=== PATIENT | female | born 1935 | race Caucasian/White ===

== ENCOUNTER 2017-06-04 06:34 | Emergency (ER) | payer BC ==
[~2017-06-04] VITALS: Ht 167.6 cm; Wt 68.0 kg
== END 2017-06-04 07:09 | disposition home or self-care (01) ==
LOC: ED 06:34
DX: H11.31 Conjunctival hemorrhage, right eye (principal); I10 Essential (primary) hypertension

== ENCOUNTER 2022-06-03 17:56 | Emergency (ER) | payer MEDICARE ==
[~2022-06-03] VITALS: Ht 160 cm; Wt 61.2 kg
[2022-06-03 20:26] LABS: BASO % 0.3 % (0.0-1.0); EOS % 0.5 % (1.0-4.0); HEMATOCRIT 41.1 % (37.0-47.0); LYMPH # 0.4 10*3/uL (1.3-4.4); LYMPH % 5.8 % (27.0-41.0); MEAN CELL VOLUME 90.3 fl (81.0-99.0); MEAN CORPUSCULAR HGB 29.2 pg (27.0-31.0); MEAN CORPUSCULAR HGB CONC 32.4 g/dl (33.0-37.0); MEAN PLATELET VOLUME 9.4 fl (9.6-12.3); MONO # 0.7 10*3/uL (0.1-1.0); MONO % 10.7 % (3.0-9.0); NEUT # 5.3 10*3/uL (2.3-7.9); NEUT % 82.2 % (47.0-73.0); PLATELET COUNT AUTOMATED 200 10*3/uL (130-400); RED BLOOD COUNT 4.55 10*6/uL (4.10-5.10); RED CELL DISTRI WIDTH 13.8 % (0-14.5); WHITE BLOOD COUNT 6.4 10*3/uL (4.8-10.8)
[2022-06-03 20:58] LABS: ALKALINE PHOSPHATASE 98 U/L (46-116); BUN 18 mg/dl (9-23); CHLORIDE 99 mmol/L (98-107); CREATININE 1.01 mg/dL (0.55-1.02); LIPASE 34 U/L (12-53); SGPT/ALT 8 U/L (10-49); SODIUM 136 mmol/L (136-145); TOTAL PROTEIN 6.6 gm/dL (6.0-8.0)
[2022-06-03] MEDS ORDERED: ONDANSETRON4 MG SL (21:46)
== END 2022-06-03 22:26 | disposition home or self-care (01) ==
LOC: ED 17:56
PROVIDERS: Family Medicine
DX: J10.1 Influenza due to other identified influenza virus with other respiratory manifestations (principal); Z20.822 Contact with and (suspected) exposure to COVID-19; N18.31 Chronic kidney disease, stage 3a

== ENCOUNTER 2024-01-22 16:45 | Observation (INO) | payer MEDICARE ==
[2024-01-22] VITALS (11 sets, daily range): BP systolic 154–218; BP diastolic 52–90
[~2024-01-22] VITALS: Ht 160 cm; Wt 63.5 kg
[~2024-01-22 16:45] MED LIST: ONDANSETRON4 MG SL
[2024-01-22] MEDS ORDERED: hydrALAZINE hydrochloride 20 MG/ML VIAL IV ONE (17:10)
[2024-01-22 17:33] LABS: BASO % 0.6 % (0.0-1.0); EOS # 0.2 10*3/uL (0.0-0.4); EOS % 3.4 % (1.0-4.0); HEMATOCRIT 42.7 % (37.0-47.0); LYMPH # 1.6 10*3/uL (1.3-4.4); MEAN CELL VOLUME 89.3 fl (81.0-99.0); MEAN CORPUSCULAR HGB 28.9 pg (27.0-31.0); MEAN CORPUSCULAR HGB CONC 32.3 g/dl (33.0-37.0); MONO # 0.5 10*3/uL (0.1-1.0); MONO % 8.5 % (3.0-9.0); NEUT # 3.9 10*3/uL (2.3-7.9); NEUT % 62.2 % (47.0-73.0); PLATELET COUNT AUTOMATED 232 10*3/uL (130-400); RED BLOOD COUNT 4.78 10*6/uL (4.10-5.10); WHITE BLOOD COUNT 6.3 10*3/uL (4.8-10.8)
[2024-01-22] MEDS ORDERED: LOSARTAN POTAS100 M1 PO (17:42)
[2024-01-22 17:45] LABS: ACT PARTIAL THROMBO TIME 27.9 SECONDS (20.0-32.1)
[2024-01-22 17:51] LABS: BUN 17 mg/dl (9-23); CHLORIDE 105 mmol/L (98-107); POTASSIUM 4.3 mmol/L (3.4-5.1)
[2024-01-22] MEDS ORDERED: TEMAZEPAM 15 MG CAP PO PRN (21:35)
[2024-01-22] MEDS ORDERED: MORPHINE Sulfate 2 MG/ML SYR IV PRN (21:35)
[2024-01-22] MEDS ORDERED: ACETAMINOPHEN 325 MG TAB PO PRN (21:35)
[2024-01-22] MEDS ORDERED: BISACODYL 10 MG SUPP R PRN (21:35)
[2024-01-22] MEDS ORDERED: Magnesium Hydroxide 30 ML UDC PO PRN (21:35)
[2024-01-22] MEDS ORDERED: BISACODYL 5 MG TAB PO PRN (21:35)
[2024-01-22] MEDS ORDERED: Acetaminophen/Hydrocodone 5 MG/325 MG TABLET PO PRN (21:35)
[2024-01-22] MEDS ORDERED: Ondansetron Hydrochloride 4 MG/2 ML VIAL IV PRN (21:35)
[2024-01-22] MEDS ORDERED: ACETAMINOPHEN 650 MG SUPP R PRN (21:35)
[2024-01-23 03:30] VITALS: BP 155/65
[2024-01-23 06:21] LABS: BASO % 0.6 % (0.0-1.0); EOS # 0.3 10*3/uL (0.0-0.4); EOS % 3.8 % (1.0-4.0); HEMATOCRIT 41.1 % (37.0-47.0); LYMPH # 1.9 10*3/uL (1.3-4.4); LYMPH % 27.7 % (27.0-41.0); MEAN CORPUSCULAR HGB CONC 32.6 g/dl (33.0-37.0); MEAN PLATELET VOLUME 9.2 fl (9.6-12.3); MONO # 0.8 10*3/uL (0.1-1.0); MONO % 11.2 % (3.0-9.0); NEUT # 3.9 10*3/uL (2.3-7.9); NEUT % 56.4 % (47.0-73.0); PLATELET COUNT AUTOMATED 243 10*3/uL (130-400); RED BLOOD COUNT 4.62 10*6/uL (4.10-5.10); RED CELL DISTRI WIDTH 13.2 % (0-14.5); WHITE BLOOD COUNT 6.9 10*3/uL (4.8-10.8)
[2024-01-23 06:27] LABS: ACT PARTIAL THROMBO TIME 28.3 SECONDS (20.0-32.1)
[2024-01-23 06:49] LABS: ALKALINE PHOSPHATASE 93 U/L (46-116); BUN 17 mg/dl (9-23); CHLORIDE 107 mmol/L (98-107); CHOLESTEROL 218 mg/dL (<200); LDL CHOLESTEROL 118 mg/dL (9-159); POTASSIUM 4.7 mmol/L (3.4-5.1); SGPT/ALT 9 U/L (5-49); TOTAL PROTEIN 6.4 gm/dL (6.0-8.0); TRIGLYCERIDES 280 mg/dl (<150)
[2024-01-23 06:55] LABS: VITAMIN D, 25-HYDROXY 42.4 ng/mL (30-100)
[2024-01-23 07:51] VITALS: BP 151/65
[2024-01-23] MEDS ORDERED: Losartan Potassium 100 MG TABLET PO SCH (10:00)
[2024-01-23] MEDS ORDERED: CARVEDILOL 6.25 MG TAB PO SCH (10:00)
[2024-01-23] MEDS ORDERED: Enoxaparin Sodium 40 MG/0.4 ML SYR SC SCH (10:00)
[2024-01-23] MEDS ORDERED: COREG3.125 MG PO (10:26)
== END 2024-01-23 11:01 | disposition home or self-care (01) ==
LOC: ED 16:45 → EDHOLD 19:21
PROVIDERS: Physician Assistant Medical; Student in an Organized Health Care Education/Training Program; ADMIT Internal Medicine; ATTEND Internal Medicine
DX: I16.1 Hypertensive emergency (principal); R53.83 Other fatigue; E78.2 Mixed hyperlipidemia; I10 Essential (primary) hypertension; Z79.899 Other long term (current) drug therapy

== ENCOUNTER 2024-02-04 16:32 | Emergency (ER) | payer MEDICARE ==
[~2024-02-04] VITALS: Ht 160 cm; Wt 63.5 kg
[~2024-02-04 16:32] MED LIST changes: +COREG3.125 MG PO; +LOSARTAN POTAS100 M1 PO
[2024-02-04 18:45] LABS: BASO % 0.4 % (0.0-1.0); EOS # 0.2 10*3/uL (0.0-0.4); EOS % 3.3 % (1.0-4.0); HEMATOCRIT 38.8 % (37.0-47.0); LYMPH # 1.9 10*3/uL (1.3-4.4); LYMPH % 25.4 % (27.0-41.0); MEAN CELL VOLUME 89.4 fl (81.0-99.0); MEAN CORPUSCULAR HGB 29.5 pg (27.0-31.0); MEAN PLATELET VOLUME 9.1 fl (9.6-12.3); MONO # 0.7 10*3/uL (0.1-1.0); MONO % 9.5 % (3.0-9.0); NEUT # 4.5 10*3/uL (2.3-7.9); NEUT % 61.1 % (47.0-73.0); PLATELET COUNT AUTOMATED 214 10*3/uL (130-400); RED BLOOD COUNT 4.34 10*6/uL (4.10-5.10); RED CELL DISTRI WIDTH 13.1 % (0-14.5); WHITE BLOOD COUNT 7.3 10*3/uL (4.8-10.8)
[2024-02-04 19:07] LABS: ALKALINE PHOSPHATASE 98 U/L (46-116); BUN 13 mg/dl (9-23); CHLORIDE 106 mmol/L (98-107); POTASSIUM 4.1 mmol/L (3.4-5.1); SGPT/ALT < 7 U/L (5-49); TOTAL PROTEIN 6.1 gm/dL (6.0-8.0)
== END 2024-02-04 22:11 | disposition home or self-care (01) ==
LOC: ED 16:32
PROVIDERS: Internal Medicine
DX: I16.0 Hypertensive urgency (principal); F41.9 Anxiety disorder, unspecified; E78.5 Hyperlipidemia, unspecified; Z90.49 Acquired absence of other specified parts of digestive tract; Z90.711 Acquired absence of uterus with remaining cervical stump; Z98.890 Other specified postprocedural states

== ENCOUNTER 2025-03-07 15:01 | Emergency (ER) | payer MEDICARE ==
[~2025-03-07] VITALS: Ht 160 cm; Wt 63.5 kg
[2025-03-07] MEDS ORDERED: ELIQUIS5 M1 PO (15:08)
[2025-03-07] MEDS ORDERED: METOPROLOL SUCC25 M2 PO (15:08)
[2025-03-07] MEDS ORDERED: FUROSEMIDE20 M1 PO (15:09)
[2025-03-07] MEDS ORDERED: Dexamethasone Sodium Phospha 20 MG/5 ML VIAL IM ONE (15:15)
[2025-03-07] MEDS ORDERED: Amoxicillin/Clavulanate Pota 875 MG TAB PO ONE (15:15)
[2025-03-07] MEDS ORDERED: AMOX-CLAV 875-1 EACH PO (15:19)
== END 2025-03-07 15:30 | disposition home or self-care (01) ==
LOC: ED 15:01
DX: J02.0 Streptococcal pharyngitis (principal); I10 Essential (primary) hypertension; I48.91 Unspecified atrial fibrillation; Z90.710 Acquired absence of both cervix and uterus; Z90.49 Acquired absence of other specified parts of digestive tract

== ENCOUNTER 2025-03-16 14:17 | Emergency (ER) | payer MEDICARE ==
[~2025-03-16] VITALS: Ht 160 cm; Wt 59.0 kg
[~2025-03-16 14:17] MED LIST changes: +AMOX-CLAV 875-1 EACH PO; +ELIQUIS5 M1 PO; +FUROSEMIDE20 M1 PO; +METOPROLOL SUCC25 M2 PO
[2025-03-16] MEDS ORDERED: Ondansetron Hydrochloride 4 MG/2 ML VIAL IV ONE (14:20)
[2025-03-16] MEDS ORDERED: FAMOTIDINE 50 ML IV ONE (14:20)
[2025-03-16] MEDS ORDERED: SODIUM CHLORIDE 0.9% 1,000 ML IV ONE (14:20)
[2025-03-16 14:40] LABS: BASO # 0.1 10*3/uL (0.0-0.1); BASO % 0.4 % (0.0-1.0); EOS # 0.4 10*3/uL (0.0-0.4); EOS % 3.5 % (1.0-4.0); MEAN CELL VOLUME 90.8 fl (81.0-99.0); MEAN CORPUSCULAR HGB 29.5 pg (27.0-31.0); MEAN PLATELET VOLUME 9.1 fl (9.6-12.3); MONO # 1.1 10*3/uL (0.1-1.0); MONO % 9.2 % (3.0-9.0); NEUT # 8.8 10*3/uL (2.3-7.9); NEUT % 77.0 % (47.0-73.0); NUCLEATED RED BLOOD CELL 0.0 % (0.0-0.0); NUCLEATED RED BLOOD CELL 0.0 10*3/uL (0.0-0.0); PLATELET COUNT AUTOMATED 295 10*3/uL (130-400); RED CELL DISTRI WIDTH 14.2 % (0-14.5)
[2025-03-16 14:56] LABS: BUN 17 mg/dl (9-23)
[2025-03-16] MEDS ORDERED: Ondansetron4 MG PO (15:17)
== END 2025-03-16 17:38 | disposition home or self-care (01) ==
LOC: ED 14:17
PROVIDERS: Emergency Medicine
DX: R07.2 Precordial pain (principal); R11.2 Nausea with vomiting, unspecified; R19.7 Diarrhea, unspecified; Z79.899 Other long term (current) drug therapy; Z90.49 Acquired absence of other specified parts of digestive tract; Z90.710 Acquired absence of both cervix and uterus; I48.91 Unspecified atrial fibrillation; I10 Essential (primary) hypertension; E78.5 Hyperlipidemia, unspecified